=== PATIENT | female | born 1950 | race Caucasian/White ===

== ENCOUNTER 2017-08-29 14:04 | Inpatient (IN) | payer MEDICARE, OTHER ==
[2017-08-29] MEDS: NS 0.9% 1000 ML* 2,000 ML IV ONE ×2 (14:31→14:33)
[2017-08-29 14:40] LABS: Add Diff/Slide Review? Slide Review Added; Comments Flag Yes; Hematocrit 29 % (35-47); Hemoglobin 9.5 g/dl (12.0-16.0); Mean Corpuscular HGB Conc 33 g/dl (31-36); Mean Corpuscular Hemoglobin 29 pg (27-31); Mean Corpuscular Volume 88 fL (80-97); Mean Platelet Volume 7 um3 (7.4-10.4); Red Blood Count 3.25 10^6/ul (4.0-5.4); Red Cell Distribution Width 14 % (10.5-15); White Blood Count 19.2 10^3/ul (3.5-10.8)
[2017-08-29] MEDS ORDERED: Iodixanol* (CONTRAST) 320 MG/ML 100 ML SDV IV ONE (14:55)
[2017-08-29 14:56] LABS: Albumin 3.4 g/dL (3.2-5.2); Calcium 8.8 mg/dL (8.6-10.3); EGFR African American 56.9 (>60); EGFR Non-African American 44.2 (>60); Globulin 2.6 g/dL (2-4); Potassium 3.7 mmol/L (3.5-5.0); Total Bilirubin 0.5 mg/dL (0.2-1.0)
[2017-08-29 15:00] LABS: Eosinophils % 2 % (0-6); Immature Granulocytes 4 % (0-9); Myelocytes % 3 % (0-1); Neutrophil % 81 % (38-83); RBC Morphology Normal (Normal)
--- NOTE | 2017-08-29 15:48 | RAD ---
INDICATION: Right flank hematoma COMPARISON: None TECHNIQUE: Axial source images were obtained from the hemidiaphragms to the symphysis pubis following administration of oral and intravenous contrast. 100 mL Visipaque 320 was utilized. Coronal and sagittal reconstructed images were acquired. Lung bases: There is mild airspace disease in the right lung base which is likely atelectasis. Suggest a follow-up chest x-ray as needed. Liver: The liver is mildly enlarged with findings of hepatic steatosis. There are no masses. There is no ductal dilatation. Gallbladder: Cholecystectomy. Spleen: The spleen is normal in size. There are no masses. Pancreas: There is no focal pancreatic mass or ductal dilatation. Adrenal glands: There is no evidence of adrenal mass. Kidneys: The kidneys are normal in size and position. There are prompt nephrograms and there is prompt excretion bilaterally. There are no renal parenchymal masses. There is no evidence of nephrolithiasis. Adenopathy: There is no evidence of adenopathy by size criteria. Fluid collections: There are no free or localized fluid collections. Vessels:There are no significant atherosclerotic changes involving the aorta. There is no focal aneurysm. The iliac vessels are normal in caliber. The IVC appears normal. GI tract: There is no oral contrast. The upper and lower GI tract appear grossly normal. Pelvic organs: The uterus and adnexa appear normal Bladder: There are no bladder masses. Abdominal and pelvic soft tissues: There is a large hematoma involving the oblique musculature of the right flank with a localized hematoma measuring 4.8 x 11.0 cm in transverse dimension and 9.8 cm in cephalocaudal dimension. There is also mild expansion of the transverse abdominis muscle. There is postoperative change of the left breast. Osseous structures: There are no acute osseous findings. Other: None IMPRESSION: THERE IS A LARGE SUPERFICIAL HEMATOMA IN THE MUSCULATURE OF THE RIGHT FLANK DESCRIBED.
[2017-08-29] MEDS ORDERED: ALBUTEROL MDI INH PRN (16:44)
[2017-08-29] MEDS ORDERED: Benzonatate CAP* 100 MG PO PRN (16:48)
[2017-08-29] MEDS ORDERED: Venlafaxine EXT RELEASE CAP* 75 MG PO SCH (17:00)
[2017-08-29] MEDS ORDERED: BuPROPion XL* 150 MG TAB.XL PO SCH (17:00)
[2017-08-29] MEDS ORDERED: Fluticasone NASAL SPRAY 50MCG* 16 gm SPRAY BTL BOTH NARES SCH (17:00)
--- NOTE | 2017-08-29 17:40 | RAD ---
Indication: Cough. Single frontal view of the chest performed at 1717 hours was reviewed. Comparison is made with previous exam dated January 14, 2008. Elevated right hemidiaphragm is noted. Heart is of normal size and configuration. Lung alvarez are clear. IMPRESSION: NO ACTIVE CARDIOPULMONARY DISEASE IS NOTED.
[2017-08-29] MEDS: NS 0.9% 1000 ML* 1,000 ML IV SCH (17:52)
[2017-08-29] MEDS: guaiFENesin/CODIEN 100MG-10MG* 5 ML UDC PO PRN (17:56)
[2017-08-29] MEDS ORDERED: BUPROPION 150 MG PO SCH (18:33)
[2017-08-29] MEDS: oxyCODONE/Acetamin 5/325 MG* TAB PO PRN (19:27)
[2017-08-29] MEDS: FLUTICASONE SALMETEROL INH SCH (20:00)
[2017-08-29 20:25] LABS: Hematocrit 23 % (35-47); Hemoglobin 7.7 g/dl (12.0-16.0)
[2017-08-29] MEDS: [UNRECOGNIZED DRUG - OTHER] PO SCH (21:09)
[2017-08-29] MEDS: OMEPRAZOLE 20 MG PO SCH (21:09)
[2017-08-29] MEDS: BUPROPION 150 MG PO SCH (21:10)
--- NOTE | 2017-08-29 23:25 | HP ---
CC: Dr. Mcgowan * HISTORY AND PHYSICAL: DATE OF ADMISSION: 08/29/17 PRIMARY CARE PHYSICIAN: Dr. Mcgowan. CHIEF COMPLAINT: Right flank pain, cough, dizziness. HISTORY OF PRESENT ILLNESS: Ms. Stubbs is a 67-year-old female with past medical history of hypertension, GERD, depression, asthma, breast cancer, status post lumpectomy, radiation therapy and chemotherapy who presents to the hospital with cough, flank and dizziness. The patient states that about 10 days ago, she began to develop cough, chest tightness, some rhinorrhea, felt like a common cold to her. She states the cough was nonproductive. Over the past couple of days, she felt a little bit warm, but does not think she had a fever. Over the last 3 to 4 days, the coughing has been more severe. She has been unable to sleep. Her significant other in the room says that she intentionally restricts her fluid intake to try to avoid excess mucous production hoping that might improve her cough. Earlier this morning, around 1 a.m. the patient had a severe coughing episode. She got up to go to the bathroom, came back to the bed and felt a tightness in her right flank followed by significant pain which she states at worse was about a 9/10. They subsequently saw that she had developed a large bruise over her right flank, pain continued during the day and she began to feel dizzy. EMS was called and she was brought to the hospital for further evaluation. The patient denies any bleeding history or easy bruising. Denies any family history of bleeding problems. She is supposed to be on around the clock oxygen at home and reportedly uses a BiPAP at night with 7 L of oxygen. In the emergency department, the patient was hypotensive with a leukocytosis and a CT scan, showed a large superficial hematoma. Hospitalist service was consulted to consider the patient for admission. PAST MEDICAL HISTORY: Breast cancer, status post lumpectomy, radiation therapy , chemotherapy; hypertension; GERD; depression; asthma; DAVID, on home BiPAP. PAST SURGICAL HISTORY: Cholecystectomy, wrist surgery, lumpectomy. HOME MEDICATIONS: 1. Effexor 225 mg by mouth daily. 2. Nicotine gum 2 mg by mouth every 2 hours as needed for craving. 3. Advair 1 puff inhaled 2 times daily. 4. Flonase 2 sprays in both nares daily. 5. Norma 180 mg by mouth daily as needed for allergy symptoms. 6. Albuterol 2 puffs inhaled every 4 hours as needed for shortness of breath or wheezing. 7. Lasix 20 mg by mouth daily. 8. Nifedipine 30 mg by mouth daily. 9. Wellbutrin 150 mg by mouth daily. 10. Tricor 145 mg by mouth daily. 11. Omeprazole 20 mg by mouth 2 times daily. ALLERGIES: She reports allergy to ERYTHROMYCIN and LASIX. FAMILY HISTORY: Significant for mother with COPD, father with COPD. SOCIAL HISTORY: The patient is a former [id number] smoker, quit about 20 years ago. Denies any alcohol or illicit drug use. REVIEW OF SYSTEMS: The patient reports a recent cellulitis. Other than that, a 12- point review of systems negative except for that as noted in the HPI. PHYSICAL EXAMINATION GENERAL: The patient is a middle-aged, obese female, lying in bed, in no apparent distress. VITAL SIGNS: On admission, temperature 97.4, heart rate of 103, respiratory rate of 16, O2 saturation 97% on 2 L, blood pressure 72/44, remained low and has now increased last one to 105/55. HEENT: Head normocephalic, atraumatic. Eyes: Pupils equal, round and reactive to light and accommodation. Anicteric sclerae. ENT: Dry mucous membranes. No cervical lymphadenopathy. LUNGS: Clear to auscultation bilaterally. No wheezes, rales, or rhonchi. CARDIOVASCULAR: Regular rate and rhythm. S1, S2 present. No murmurs, gallops , or rubs. ABDOMEN: Obese, soft, nontender, nondistended. Bowel sounds positive. Right flank with large ecchymotic area with subcutaneous firm hematoma. EXTREMITIES: No cyanosis, clubbing, or edema. NEUROLOGIC: The patient is alert and oriented x3. No focal neurological deficits. LABS AND DIAGNOSTICS: White blood cell count of 19.2, hemoglobin of 9.5, hematocrit of 29, platelets of 454. INR of 0.95. Sodium 138, potassium 3.7, chloride of 101, carbon dioxide 26, BUN of 17, creatinine 1.21, glucose of 189. LFTs within normal limits. Lactic acid is pending. EKG, personally reviewed, shows normal sinus rhythm, no ischemic changes. CT of the abdomen and pelvis shows a large superficial hematoma in the musculature of the right flank. ASSESSMENT AND PLAN: Superficial intramuscular hematoma of the oblique secondary to coughing, hypotension in the setting of likely upper respiratory infection in a 59-year-old female with a past medical history of hypertension, depression, asthma, and history of breast cancer. 1. Large superficial hematoma. As noted in the imaging above, CT scan shows a 4 x 8 x 11 cm x 9.8 cm hematoma. The patient is anemic with a hemoglobin of 9.5. Unfortunately, we do not have any previous records to compare this to. We will request records from Dr. Mcgowan's office. This seems just likely related to the increased pressure from coughing. Her INR is normal. I do not think she necessarily has any underlying bleeding issues. We will continue to monitor her hemoglobin closely overnight. It seems unlikely that her hypotension is due to this blood collection. I suspect her hemoglobin, hematocrit may drop as the remainder of her labs, seem that she may be hemoconcentrated. We will transfuse if the patient's hemoglobin drops below 7. 2. Hypotension. Again, the same is unlikely to be due to her bleeding. I suspect she is significantly dehydrated. She has received 2 L IV fluid in the emergency department with improvement in her blood pressures. Lactic acid was ordered in the ED, is pending at this time. We will continue normal saline at 100 cc an hour overnight, encouraged her to drink water. Recheck a BNP in the morning and we will check orthostatic blood pressures as well. We will obtain blood cultures. 3. Respiratory infection. It seems like this is probably a viral upper respiratory infection. We will check a chest x-ray. If there are some clear signs of pneumonia, consider putting the patient on antibiotics. For now, we will continue with supportive care with pain control and Tessalon Perles, and Robitussin with Codeine. 4. Asthma. The patient does not seem to be wheezing or be in exacerbation at this time. We will continue Dulera and place on home Advair and p.r.n. albuterol. 5. Hypertension. Hold patient's home nifedipine and Lasix for now. 6. Depression. Continue home venlafaxine and Wellbutrin. 7. Gastroesophageal reflux disease. Continue home PPI. 8. DVT prophylaxis. SCDs. 9. Code status. The patient is a full code. TIME SPENT: Total time spent on this admission 50 minutes with over half the time spent [id number] with the patient in counseling and coordinating care. [id number]/[facility] #: [id number] DENISE
[2017-08-30] MEDS: oxyCODONE/Acetamin 5/325 MG* TAB PO PRN ×5 (00:21→20:00)
[2017-08-30] MEDS: guaiFENesin/CODIEN 100MG-10MG* 5 ML UDC PO PRN ×5 (00:26→20:02)
[2017-08-30 03:23] LABS: Comments Flag Yes; Hematocrit 25 % (35-47); Hemoglobin 8.3 g/dl (12.0-16.0)
[2017-08-30] MEDS: NS 0.9% 1000 ML* 1,000 ML IV SCH (04:00)
[2017-08-30 05:46] LABS: Hematocrit 25 % (35-47); Hemoglobin 8.1 g/dl (12.0-16.0); Mean Corpuscular HGB Conc 33 g/dl (31-36); Mean Corpuscular Hemoglobin 29 pg (27-31); Mean Corpuscular Volume 88 fL (80-97); Mean Platelet Volume 7 um3 (7.4-10.4); Red Blood Count 2.78 10^6/ul (4.0-5.4); Red Cell Distribution Width 14 % (10.5-15); White Blood Count 15.1 10^3/ul (3.5-10.8)
[2017-08-30] MEDS: NS 0.9% 1000 ML* 1,000 ML IV ONE ×2 (05:50→06:10)
[2017-08-30 05:53] LABS: Add Diff/Slide Review? Slide Review Added; Comments Flag Yes
[2017-08-30 05:59] LABS: BUN/Creatinine Ratio 15.6 (8-20); Calcium 7.8 mg/dL (8.6-10.3); EGFR African American 56.4 (>60); EGFR Non-African American 43.8 (>60); Potassium 3.5 mmol/L (3.5-5.0)
[2017-08-30] MEDS: [UNRECOGNIZED DRUG - OTHER] PO SCH (09:20)
[2017-08-30] MEDS: OMEPRAZOLE 20 MG PO SCH ×2 (09:21→20:00)
[2017-08-30] MEDS: FENOFIBRATE 145 MG PO SCH (09:21)
[2017-08-30] MEDS: BUPROPION 150 MG PO SCH (09:21)
[2017-08-30] MEDS: FLUTICASONE 50 MCG BOTH NARES SCH (09:23)
[2017-08-30] MEDS: FLUTICASONE SALMETEROL INH SCH ×2 (09:43→20:35)
--- NOTE | 2017-08-30 13:59 | PN ---
Subjective Date of Service: 08/30/17 Interval History: Patient seen multiple times today. Reports "tightness" in R flank, continues to report coughing problems. No fever or chills. Says she felt unsteady on her feet this morning but not dizzy when laying in bed. BPs soft overnight last night, while I was speaking with her automatic cuff registered SBP in 60s, asymptomatic. Had nurse check manual which showed SBP in 120s. Change of cuff from arm to leg resulted in more accurate measurements. Explained to patient that I think she may have had falsely low BP values recorded overnight, she then stated she wanted to talk to the ED staff so they could tell her that they were wrong. Became very agitated and anxious, said she think she has internal bleeding, says she will alida the hospital if anything happens to her after she is discharged. Family History: Unchanged from Admission Social History: Unchanged from Admission Past Medical History: Unchanged from Admission Objective Active Medications: Albuterol (Ventolin Hfa Inhaler*) 2 puff INH Q4H PRN Benzonatate (Tessalon Cap*) 100 mg PO BID PRN Bupropion HCl (Wellbutrin Xl *) 150 mg PO 0900 BEVERLEY Fenofibrate (Tricor(Nf)) 145 mg PO DAILY BEVERLEY Fluticasone Propionate (Flonase Nasal Emerson 50mcg*) 2 spray BOTH NARES DAILY BEVERLEY Guaifenesin/Codeine Phosphate (Robitussin Ac 100mg-10mg*) 5 ml PO Q4H PRN Levothyroxine Sodium (Synthroid Tab*) 100 mcg PO DAILY@0600 BEVERLEY Omeprazole (Prilosec Cap*) 20 mg PO BID BEVERLEY Oxycodone/Acetaminophen (Percocet 5/325 Tab*) 1 tab PO Q4H PRN Fluticasone/Salmeterol (Advair Diskus 500-50*) 1 puff INH BID BEVERLEY Venlafaxine HCl (Effexor Xr Cap*) 225 mg PO DAILY BEVERLEY Vital Signs 08/29/17 08/29/17 08/29/17 16:30 16:43 16:45 Temperature 97.9 F Pulse Rate 99 94 Respiratory 11 21 Rate Blood Pressure 106/57 94/58 (mmHg) O2 Sat by Pulse 97 96 Oximetry 08/29/17 08/29/17 08/29/17 19:00 19:02 19:15 Temperature Pulse Rate 107 107 104 Respiratory 36 31 12 Rate Blood Pressure 82/43 114/81 (mmHg) O2 Sat by Pulse 99 92 97 Oximetry 08/30/17 08/30/17 08/30/17 01:45 02:00 02:15 Temperature Pulse Rate 88 88 86 Respiratory 18 20 18 Rate Blood Pressure 93/54 84/48 84/41 (mmHg) O2 Sat by Pulse 95 93 94 Oximetry 08/30/17 08/30/17 08/30/17 02:30 02:33 02:45 Temperature Pulse Rate 86 87 87 Respiratory 20 17 17 Rate Blood Pressure 79/40 83/51 82/43 (mmHg) O2 Sat by Pulse 93 96 95 Oximetry 08/30/17 08/30/17 13:00 13:04 Temperature Pulse Rate 95 Respiratory 22 Rate Blood Pressure 118/62 (mmHg) O2 Sat by Pulse 97 Oximetry Oxygen Devices in Use Now: Nasal Cannula - 2L Appearance: Elderly, obese, F, laying in bed in NAD Eyes: No Scleral Icterus Ears/Nose/Mouth/Throat: Mucous Membranes Moist Neck: NL Appearance and Movements; NL JVP Respiratory: Symmetrical Chest Expansion and Respiratory Effort, Clear to Auscultation Cardiovascular: NL Sounds; No Murmurs; No JVD, RRR Abdominal: - - Obese, soft, NTND, BS+ Lymphatic: No Cervical Adenopathy Extremities: No Edema Skin: - - R flank with large ecchymosis, firm underneath, slightly larger than yesterday Neurological: Alert and Oriented x 3 Result Diagrams: 08/30/17 05:35 08/30/17 05:35 Assess/Plan/Problems-Billing Assessment: R flank hematoma, anemia, hypotension in a 67 yo F with hx of HTN, GERD, depression, DAVDI on BiPAP, breast cancer s/p lumpectomy, RT, chemo - Patient Problems (1) Right flank hematoma Current Visit: Yes Comment: Seems to be going through natural evolution. Do not think she is actively bleeding any longer as CT scan shows no contrast extravasation. (2) Anemia Current Visit: Yes Comment: Hb dropped overnight and patient received 1u PRBC. I think this was from a combination of patient being hemoconcentrated ( reports drinking very little when she has a cough), hematoma and IVF resucitation. Awaiting records from PCP for recent blood work. If patient stays will recheck H/H (3) Hypotension Current Visit: Yes Comment: May have had some contribution from dehydration/ anemia but I think cuff size may have been giving inaccurate readings. Manual in ICU this morning taken by nursing and myself were both normal and when cuff changed to leg BPs were also normal. Stopped IVF this morning. (4) Cough Current Visit: Yes Comment: URI, no evidence of bacterial infection at this time. Supportive care. (5) Asthma Current Visit: Yes Comment: Continue inhalers (6) DAVID (obstructive sleep apnea) Current Visit: Yes Comment: BiPAP qhs (7) Depression Current Visit: Yes Comment: Continue home medications (8) GERD (gastroesophageal reflux disease) Current Visit: Yes Comment: Continue PPI (9) DVT prophylaxis Current Visit: Yes Comment: SCDs
[2017-08-30 14:43] LABS: Hematocrit 25 % (35-47)
[2017-08-30] MEDS: LEVOTHYROXINE 100 MCG PO SCH (15:21)
[2017-08-30] MEDS ORDERED: LORazepam INJ* 2 MG/ML 1 ML VIAL IV PUSH ONE (20:30)
[2017-08-30 20:45] LABS: Comments Flag Yes; Hematocrit 26 % (35-47); Hemoglobin 8.6 g/dl (12.0-16.0)
--- NOTE | 2017-08-30 20:56 | RAD ---
Indication: Shortness of breath. Single frontal view of the chest performed at 2020 hours was reviewed. Comparison is made with previous exam dated August 29, 2017. No mediastinal shift is noted. Heart is of normal size and configuration. Lung alvarez appear clear. Elevated right hemidiaphragm is noted. No changes noted since prior exam. IMPRESSION: NO ACTIVE CARDIOPULMONARY DISEASE IS NOTED.
[2017-08-31 00:11] VITALS: BP 142/58
[2017-08-31] MEDS: guaiFENesin/CODIEN 100MG-10MG* 5 ML UDC PO PRN ×3 (00:40→09:42)
[2017-08-31] MEDS: oxyCODONE/Acetamin 5/325 MG* TAB PO PRN ×3 (00:40→09:42)
[2017-08-31] MEDS: LEVOTHYROXINE 100 MCG PO SCH (05:09)
[2017-08-31] MEDS: FLUTICASONE SALMETEROL INH SCH (09:42)
[2017-08-31] MEDS: FLUTICASONE 50 MCG BOTH NARES SCH (09:43)
[2017-08-31] MEDS: OMEPRAZOLE 20 MG PO SCH (09:43)
[2017-08-31] MEDS: [UNRECOGNIZED DRUG - OTHER] PO SCH (09:44)
[2017-08-31] MEDS: FENOFIBRATE 145 MG PO SCH (09:45)
[2017-08-31] MEDS: BUPROPION 150 MG PO SCH (09:46)
--- NOTE | 2017-08-31 09:50 | DCNOTE ---
Patient seen this morning. States she had "panic attack" overnight. Still some "tightness" over the R flank, no SOB currently. On exam, RRR, s1 and s2 present, no m/g/r, diminished BS in bases, otherwise clear, some spreading of the ecchymosis on the R flank, softer Discharge home today. Will hold BP meds until she sees PCP as she is very concerned about her BPs being low.
--- NOTE | 2017-08-31 22:05 | ED ---
Trae Villalba Benjamin, scribed for Billy Kc MD on 08/29/17 at 1446 . Dizziness - HPI Summary HPI Summary: 67yo female c/o dizziness, lightheadedness for a few days. Pt still is dizzy now. Pt also noticed bruising on her right flank since 0130 today. Denies any trauma. Pt was on a blood thinner until recently. Took ibuprofen this morning. Pt has hx of HTN and takes BP meds. Pts systolic pressure was in 7-80s at the time of seen. Pt reports coughing a lot more than her baseline. Pt has multiple hx of bronchitis. She states that she gets them frequently, a few times a year. Pt has been hospitalized prior for severe bronchitis and PNA. - History Of Current Complaint Stated Complaint: GENERAL ILLNESS Time Seen by Provider: 08/29/17 14:17 Hx Obtained From: Patient, Family/Pastry Wrapper - family Onset/Duration: Still Present, Gradually Timing: Intermittent Episode Lasting Severity Initially: Moderate Severity Currently: Mild Character: Lightheaded, Dizzy Aggravating Factor(s): Nothing Alleviating Factor(s): Nothing Associated Signs And Symptoms: Positive: Other: - bruising on right flank. Negative: Palpitations - Allergies/Home Medications Allergies/Adverse Reactions: Allergies Allergy/AdvReac Type Severity Reaction Status Date / Time Erythromycin Allergy Diarrhea Verified 08/29/17 14:27 Latex Allergy Rash And Verified 08/29/17 14:27 Itching Home Medications: Home Medications Albuterol inh POWDER (NF) [Proair Respiclick] 2 puff INH Q4HR PRN 08/29/17 [ History Confirmed 08/29/17] Bupropion XL* [Wellbutrin XL *] 150 mg PO DAILY 08/29/17 [History Confirmed ] Fenofibrate(NF) [Tricor(NF)] 145 mg PO DAILY 08/29/17 [History Confirmed ] Fexofenadine (NF) [Norma 180 (NF)] 180 mg PO DAILY PRN 08/29/17 [History Confirmed 08/29/17] Fluticasone NASAL SPRAY 50MCG* [Flonase NASAL SPRAY 50MCG*] 2 spray BOTH NARES DAILY 08/29/17 [History Confirmed 08/29/17] Fluticasone-Salmeterol 500-50* [Advair Diskus 500-50*] 1 puff INH BID 08/29/17 [ History Confirmed 08/29/17] Levothyroxine TAB* [Synthroid 100 MCG TAB*] 100 mcg PO DAILY 08/29/17 [History Confirmed 08/29/17] Nicotine GUM* 2 mg PO Q2H PRN 08/29/17 [History Confirmed 08/29/17] Omeprazole CAP* [Prilosec CAP* 20 MG] 20 mg PO BID 08/29/17 [History Confirmed 08/29/17] Venlafaxine EXT RELEASE CAP* [Effexor Xr CAP*] 225 mg PO DAILY 08/29/17 [ History Confirmed 08/29/17] PMH/Surg Hx/FS Hx/Imm Hx Endocrine/Hematology History: Reports: Hx Anticoagulant Therapy Respiratory History: Reports: Hx Chronic Bronchitis, Hx Pneumonia Infectious Disease History: No Infectious Disease History: Denies: Traveled Outside the [place] in Last 30 Days - Family History Known Family History: Positive: Cardiac Disease, Hypertension - Social History Occupation: Works From/At Home Lives: With Family Hx Substance Use: No Hx Tobacco Use: Yes Smoking Status (MU): Former Smoker Review of Systems Constitutional: Negative Eyes: Negative ENT: Negative Positive: Palpitations - tachycardia Positive: Cough. Negative: Shortness Of Breath Gastrointestinal: Negative Genitourinary: Negative Positive: no symptoms reported Positive: Bruising - right flank Neurological: Other - dizziness, lightheadedness All Other Systems Reviewed And Are Negative: Yes Physical Exam Triage Information Reviewed: Yes Vital Signs On Initial Exam: Initial Vitals Temp Pulse Resp BP Pulse Ox 97.4 F 103 16 72/44 97 08/29/17 14:15 08/29/17 14:15 08/29/17 14:15 08/29/17 14:15 08/29/17 14:15 Vital Signs Reviewed: Yes Appearance: Positive: Well-Appearing, No Pain Distress, Well-Nourished Skin: Positive: Warm, Dry, Pale, Other - ecchymosis on right flank, possible Hanson varela sign Head/Face: Positive: Normal Head/Face Inspection Eyes: Positive: EOMI, ELLEN ENT: Positive: Normal ENT inspection, Hearing grossly normal Neck: Positive: Supple, Nontender Respiratory/Lung Sounds: Positive: Breath Sounds Present, Decreased Breath Sounds - at the right base Cardiovascular: Positive: Pulses are Symmetrical in both Upper and Lower Extremities, Tachycardia Abdomen Description: Positive: Soft. Negative: Nontender - right flank tenderness Bowel Sounds: Positive: Present Musculoskeletal: Positive: Strength/ROM Intact Neurological: Positive: Sensory/Motor Intact, Alert, Oriented to Person Place, Time Diagnostics - Vital Signs Vital Signs Temp Pulse Resp BP Pulse Ox 08/29/17 14:18 104 72/44 96 08/29/17 14:15 97.4 F 103 16 72/37 97 - Laboratory Lab Results: Lab Results 08/29/17 Range/Units 14:28 WBC 19.2 H (3.5-10.8) 10^3/ul RBC 3.25 L (4.0-5.4) 10^6/ul Hgb 9.5 L (12.0-16.0) g/dl Hct 29 L (35-47) % MCV 88 (80-97) fL MCH 29 (27-31) pg MCHC 33 (31-36) g/dl RDW 14 (10.5-15) % Plt Count 454 H (150-450) 10^3/ul MPV 7 L (7.4-10.4) um3 Neut % (Auto) 86.5 H (38-83) % Lymph % (Auto) 8.2 L (25-47) % [place] % (Auto) 4.5 (1-9) % Eos % (Auto) 0.5 (0-6) % Baso % (Auto) 0.3 (0-2) % Absolute Neuts (auto) 16.6 H (1.5-7.7) 10^3/ul Absolute Lymphs (auto) 1.6 (1.0-4.8) 10^3/ul Absolute Monos (auto) 0.9 H (0-0.8) 10^3/ul Absolute Eos (auto) 0.1 (0-0.6) 10^3/ul Absolute Basos (auto) 0.1 (0-0.2) 10^3/ul Absolute Nucleated RBC 0.01 10^3/ul Nucleated RBC % 0.1 Result Diagrams: 08/30/17 20:39 08/30/17 05:35 Lab Statement: Any lab studies that have been ordered have been reviewed, and results considered in the medical decision making process. - CT CT A/P W CT Interpretation: Positive (See Comments) - IMPRESSION: THERE IS A LARGE SUPERFICIAL HEMATOMA IN THE MUSCULATURE OF THE RIGHT FLANK DESCRIBED. CT Interpretation Completed By: Radiologist - ED physician has reviewed this radiology report and agrees. - EKG 1446. Cardiac Rate: NL - 98bpm EKG Rhythm: Sinus Tachycardia - borderline sinus tachycardia ST Segment: Non-Specific - Diffuse non-specific T wave flattening Dizzy Course/Dx - Course Course Of Treatment: Reviewed pts medication and allergy lists. Blood pressure noted. Consulted Dr. Salinas (Assayer) at 1528 hour regarding pt's case. Advised consulting a hospitalist for pt's admission. Consulted Dr. Anderson ( Hospitalist) at 1535 hour regarding pt's case. Dr. Anderson will admit the pt. - Diagnoses Provider Diagnoses: Hematoma of right flank Discharge - Discharge Plan Condition: Good Disposition: ADMITTED TO [facility] The documentation as recorded by the Trae jordan Benjamin accurately reflects the service I personally performed and the decisions made by me, Billy Kc MD.
--- NOTE | 2017-09-01 04:13 | DS ---
CC: Dr. Mcgowan * DISCHARGE SUMMARY: DATE OF ADMISSION: 08/29/17 DATE OF DISCHARGE: 08/31/17 PRIMARY CARE PHYSICIAN: Dr. Mcgowan. PRINCIPAL DISCHARGE DIAGNOSES: 1. Right flank hematoma. 2. Upper respiratory infection with cough. 3. Hypotension. SECONDARY DIAGNOSES: 1. Breast cancer, status post lumpectomy, radiation therapy and chemotherapy. 2. Hypertension. 3. Gastroesophageal reflux disease. 4. Depression. 5. Asthma. 6. Obstructive sleep apnea on home BiPAP. 7. 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 DISCHARGE MEDICATION REGIMEN: 1. Tessalon 100 mg by mouth two times a day as needed for cough. 2. Guaifenesin and codeine 5 ml by mouth every 4 hours as needed for cough. 3. Oxycodone/acetaminophen one tablet by mouth every 6 hours as needed for pain. 4. Flonase two sprays both nares daily. 5. Bupropion 150 mg by mouth daily. 6. Tricor 145 mg by mouth daily. 7. Fexofenadine 180 mg by mouth daily as needed for allergies. 8. Advair one puff inhaled 2 times daily. 9. Synthroid 100 mcg by mouth daily. 10. Albuterol two puffs inhaled every 4 hours as needed for shortness of breath or wheezing. 11. Nicotine gum 2 mg by mouth every 2 hours as needed for cravings. 12. Omeprazole 20 mg by mouth 2 times daily. 13. Venlafaxine 225 mg by mouth daily. STUDIES DONE DURING HOSPITALIZATION: CT abdomen and pelvis with contrast, impression: Large superficial hematoma in the musculature of the right flank measuring 4.8 x 11 x 9.8. Chest x-ray, impression: No active cardiopulmonary disease is noted. HISTORY OF PRESENT ILLNESS AND HOSPITAL SUMMARY: Please see the full history and physical for full details. Briefly, Ms. Maguire is a 67-year- old female with past medical history as above who presented to the hospital with about 10 days of cough, rhinorrhea, URI symptoms. Early in the morning on the day of admission, she had a severe coughing episode followed by acute onset of right flank pain. The patient noticed she had a large bruise developing. She states she began to feel dizzy so she came to the hospital for further evaluation. CT scan showed a large hematoma as above. The patient has some anemia on admission with initial hemoglobin of 9.9, hematocrit of 29. We did not have any old labs and the patient it's unclear what her baseline hemoglobin is. The patient was noted to have low blood pressures in the emergency department and in the ICU overnight. She was given IV fluids with some drop in her hemoglobin to 7.7. She was transfused 1 unit of blood overnight. The following morning, the patient had persistent hypotension; and, in speaking with the ICU nurse, it did not seem that the patient has had a manual check. When I was in the room with her, her automatic cuff was reading a systolic blood pressure in the 60s and she was conversating with no issues. On manual recheck, her systolic blood pressure was in the 130s and when the cuff was changed from her arm to her leg, she continued to have readings in the 100s. I think that the patient had a large cuff on for much of the night, and even probably in the emergency department, that was reading falsely low blood pressure readings. She did receive a fair amount of IV fluids here and her hemoglobin and hematocrit remained fairly stable. The patient was very concerned about her low blood pressures, so she was monitored for another night. Her hemoglobin remained stable as did her blood pressures. She will be discharged with close PCP followup and she was instructed to hold her blood pressure medication until she sees Dr. Mcgowan at her upcoming appointment on 09/05/17. TIME SPENT: Total time spent on this discharge - 45 minutes. This is a summary of the hospitalization. Please see the full medical record for further details. [id number] #: [id number] MTDD
== END 2017-08-31 11:14 | disposition home or self-care (01) | DRG 556 ==
LOC: ED 14:04 → ICU 16:19 → OBSVTOIN 08-30 09:26 → MED 08-30 17:34
PROVIDERS: ADMIT Hospitalist; ATTEND Hospitalist
PROC: 30233N1 Transfusion of Nonautologous Red Blood Cells into Peripheral Vein, Percutaneous Approach (ICD-10-PCS; principal; 2017-08-29)
DX: M79.81 Nontraumatic hematoma of soft tissue (principal); I95.9 Hypotension, unspecified; Z68.42 Body mass index [BMI] 45.0-49.9, adult; I10 Essential (primary) hypertension; F32.9 Major depressive disorder, single episode, unspecified; K21.9 Gastro-esophageal reflux disease without esophagitis; J45.909 Unspecified asthma, uncomplicated; G47.33 Obstructive sleep apnea (adult) (pediatric); E66.9 Obesity, unspecified; D64.9 Anemia, unspecified; J42 Unspecified chronic bronchitis; J06.9 Acute upper respiratory infection, unspecified; R58 Hemorrhage, not elsewhere classified; R05 Cough; Z85.3 Personal history of malignant neoplasm of breast; Z92.3 Personal history of irradiation; Z92.21 Personal history of antineoplastic chemotherapy; Z90.49 Acquired absence of other specified parts of digestive tract; Z88.8 Allergy status to other drugs, medicaments and biological substances; Z88.1 Allergy status to other antibiotic agents; Z82.5 Family history of asthma and other chronic lower respiratory diseases; Z87.891 Personal history of nicotine dependence; Z87.01 Personal history of pneumonia (recurrent); Z82.49 Family history of ischemic heart disease and other diseases of the circulatory system
CPT/HCPCS: 36415; 71010; 74177; 80048; 80053; 83605; 85014; 85018; 85025; 85610; 85730; 86850; 86900; 86901; 86922; 87040; 87641; 93005; 94640; 94660; A9270-GY; G0378; J2060; P9040; Q9967